=== PATIENT | male | born 1995 | race Caucasian/White ===

== ENCOUNTER 2020-11-12 18:54 | Emergency (ER) | payer OTHER ==
[~2020-11-12] VITALS: Ht 180.3 cm; Wt 154.0 kg
[2020-11-12 19:03] VITALS: BP 118/58
== END 2020-11-12 20:05 | disposition home or self-care (01) ==
LOC: ED 19:30
DX: R11.2 Nausea with vomiting, unspecified (principal)
CPT/HCPCS: 99281